=== PATIENT | female | born 1990 | race Caucasian/White ===

== ENCOUNTER 2023-01-17 11:10 | Emergency (ER) | payer BC, SELFPAY ==
[2023-01-17] VITALS (12 sets, daily range): BP systolic 97–122; BP diastolic 65–85; PULSE 66–78; RESP 20; TEMP 37.1; O2SAT 98–100; BMI 21.4
--- NOTE | 2023-01-17 14:01 | ED.GENADULT ---
HPI - General Adult General Chief complaint: Arrhythmia/Palpitations Stated complaint: heart palpitations Time Seen by Provider: 01/17/23 13:35 History of Present Illness HPI narrative: This is a pleasant 32-year-old female with a past medical history including frequent PVCs, environmental allergies, GERD, anxiety, who presents to the ER today with her with concern for palpitations, generalized weakness, shakiness, mild shortness of breath. She does have a history of PVCs that are previously diagnosed with EKG and cardiac monitors which and at home Zio patch. She tends to correlate them and feeling more when she is dehydrated. She tends to have them a couple of times per week. She began to feel frequent PVCs yesterday evening. She tried to drink fluids but they did go away. They were more persistent overnight and still persistent this morning. She is having frequent PVCs. She can feel them in isolated beats. Also this morning she is feeling little bit shaky. She is mildly weak. 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 This made her more fatigued than such an encounter with a dog would normally do. She is not having any chest pain. No fever. No cough. No abdominal pain. No urinary symptoms. She does not think she is . No swelling in her legs. Related Data Home Medications Medication Instructions Recorded Confirmed No Known Home Medications 01/17/23 01/17/23 Allergies Allergy/AdvReac Type Severity Reaction Status Date / Time acetaminophen Allergy Severe throat Verified 09/01/22 14:29 swelling aspirin Allergy Severe throat Verified 09/01/22 14:29 swelling caffeine Allergy Severe throat Verified 09/01/22 14:29 swelling ibuprofen Allergy Severe throat Verified 09/01/22 14:29 swelling PFSH PFSH Social History Smoking Status: Never smoker Non-prescribed substance use: denies use Exam Narrative: Exam Narrative: Constitutional: Appears well-developed and well-nourished. Alert. Conversant. Non toxic. HENT: Head: Atraumatic. Nose: Nose normal. Mouth/Throat: Oral mucosa is clear and moist. no trismus. Pharynx normal. Tonsils symmetric. No tonsillar enlargement, erythema, or exudate. Eyes: Conjunctivae normal. EOM normal. Pupils equal, round, and reactive to light. No scleral icterus. Neck: Normal range of motion. Neck supple. No tracheal deviation present. No thyromegaly. Cardiovascular: Normal rate, regular rhythm. She has a PVC about once every minute or 2 on the monitor while we are talking. With each PVC she is specifically symptomatic at that moment. They correlate to her symptomatic palpitations. No gallop. No friction rub. No murmur heard. Symmetric radial and PT Artery pulses . No JVD Pulmonary/Chest: Effort normal. No stridor. No respiratory distress. No wheezes. No rales. No rhonchi . No tenderness. Abdominal: Soft. Bowel sounds normal. No distension. No mass. No tenderness. No rebound. No guarding. Musculoskeletal: RUE: Normal range of motion. No tenderness. No deformity LUE: Normal range of motion. No tenderness. No deformity RLE: Normal range of motion. No edema. No tenderness. No deformity LLE: Normal range of motion. No edema. No tenderness. No deformity Lymph: No cervical adenopathy. Neurological: Alert and oriented to person, place, and time. Normal strength. CN II-VII intact. No sensory deficit. GCS eye subscore is 4. GCS verbal subscore is 5. GCS motor subscore is 6. Normal coordination Skin: Skin is warm and dry. No rash noted. No pallor. Normal capillary refill. Psychiatric: Normal mood. Very polite. Mildly anxious. Const: Vital Signs, click to edit/add: Vital Signs - 24 hr 01/17/23 11:22 01/17/23 15:04 01/17/23 15:08 Temperature 98.8 F Pulse Rate 78 73 Pulse Rate [Pulse Oximeter] 74 Respiratory Rate 20 Blood Pressure 110/75 Blood Pressure [Ri ght Upper Arm] 122/85 Pulse Oximetry 100 100 100 Oxygen Delivery Me thod Room Air Course Vital Signs Vital signs: Initial Vital Signs Temperature 98.8 F 01/17/23 11:22 Temperature Source Temporal Artery Scan 01/17/23 11:22 Pulse Rate 74 01/17/23 11:22 Pulse Rhythm Regular 01/17/23 11:22 Respiratory Rate 20 01/17/23 11:22 Blood Pressure 122/85 01/17/23 11:22 Blood Pressure Mean 97 01/17/23 11:22 Blood Pressure Position Sitting 01/17/23 11:22 Pulse Oximetry 100 01/17/23 11:22 Oxygen Delivery Method Room Air 01/17/23 11:22 Vital Signs Temperature 98.8 F 01/17/23 11:22 Pulse Rate 74 01/17/23 11:22 Respiratory Rate 20 01/17/23 11:22 Blood Pressure 122/85 01/17/23 11:22 Pulse Oximetry 100 01/17/23 11:22 Oxygen Delivery Method Room Air 01/17/23 11:22 Temperature 98.8 F 01/17/23 11:22 Pulse Rate 73 01/17/23 15:08 Respiratory Rate 20 01/17/23 11:22 Blood Pressure 110/75 01/17/23 15:08 Pulse Oximetry 100 01/17/23 15:08 Oxygen Delivery Method Room Air 01/17/23 11:22 Medical Decision Making MDM Narrative Medical decision making narrative: This patient presents for evaluation of palpitations. A broad differential diagnosis was considered including SVT, Atrial fibrillation, ventricular arrhythmia. Initial ECG shows normal sinus rhythm and no dysrhythmogenic abnormality such as WPW, prolonged QT, Brugada syndrome, and no ischemia. panel monitor while the patient here in the ER showed no dysrhythmia. She was having frequent PVCs that corresponded to her palpitation symptoms. We undertook evaluation for cause of PVCs, including workup for thyroid disease, acute electrolyte abnormality, drugs/medications, caffeine intake or other stimulants, medication side effect, anemia, heart disease, PE, among others. The workup and exam here in ED shows not specific cause of the patient's palpitations, and no risks factors to warrant admission. Clinical judgement suggests that supportive outpatient management is indicated. Will arrange an outpatient Holter monitor and recommend follow up with []. Lab Data Labs: Lab Results 01/17/23 Range/Units 14:55 WBC 5.19 (4.50-11.00) K/uL RBC 4.52 (4.00-5.20) m/uL Hgb 13.1 (12.0-16.0) gm/dL Hct 39.7 (33.0-51.0) % MCV 88 (80-100) fL MCH 29 (26-34) pg MCHC 33 (32-36) gm/dL RDW Coeff of Susan 13.0 (11.5-15.5) % Plt Count 166 (140-440) K/uL Neut % (Auto) 57.4 (42.0-72.0) % Lymph % (Auto) 29.7 (20-44) % [place] % (Auto) 9.2 (0.0-11.0) % Eos % (Auto) 3.3 (0.0-7.0) % Baso % (Auto) 0.4 (0.0-3.0) % Neut # (Auto) 2.98 (1.7-7.0) K/uL Lymph # (Auto) 1.54 (0.90-2.90) K/uL [place] # (Auto) 0.50 (0.00-0.90) K/UL Eos # (Auto) 0.17 (0.00-0.50) K/uL Baso # (Auto) 0.02 (0.00-0.30) K/uL Abs Immat Gran (auto) 0.00 (0.00-0.30) K/uL Imm/Tot Granulo (auto) 0.0 % D-Dimer Quant (PE/DVT) < 0.27 (0.00-0.50) ug/ml Sodium 139 (135-149) mmol/L Potassium 3.9 (3.6-5.1) mmol/L Chloride 108 (96-114) mmol/L Carbon Dioxide 23 (20-32) mmol/L Anion Gap 8 (7-15) mEq/L BUN 11 (5-24) mg/dL Creatinine 0.5 (0.5-1.5) mg/dL Estimated Creat Clear 169.27 Estimated GFR 129 ml/min Glucose 78 (60-115) mg/dL Calcium 9.2 (8.4-10.6) mg/dL Troponin I < 0.01 L (0.01-0.04) ng/mL HCG, Qual Negative (Negative) ECG Data Attestation: I personally reviewed and interpreted this ECG as follows: Interpretation: Normal sinus rhythm rate 78. Computer interpretation indicates sinus rhythm was sinus arrhythmia and short VT. I believe this inaccurate. She does have visible P waves in lead V1 and VT interval is approximately 120-140 VT 120-140 QRS axis normal axis ST segment/T wave: Nonspecific flattening. No ST segment elevation or depression. QTc: 426. While on the color television console monitor she did maintain sinus rhythm with frequent PVCs. These PVCs were symptomatic and directly correlated with her sensed palpitations. Discharge Plan Discharge Clinical Impression: Frequent PVCs Patient Disposition: Home, Self-Care Condition: Stable Instructions: Premature Ventricular Contractions (ED) Additional Instructions: Please rest, stay hydrated. We expect that your PVC should get better over the next day or 2. If you have worsening symptoms, please come back to the ER right away. If her PVCs are not getting better within 2-3 days, you can come back to the ER or recheck with your doctor for recheck. Prescriptions: No Action No Known Home Medications Follow Up/Referrals: Provider,Not a Local [Primary Care Provider] - Stand Alone Forms: [facility] Info Instructions
[2023-01-17 15:03] LABS: Basophils Absolute Auto 0.02 K/uL (0.00-0.30); Basophils Percent Auto 0.4 % (0.0-3.0); Eosinophils Absolute Auto 0.17 K/uL (0.00-0.50); Eosinophils Percent Auto 3.3 % (0.0-7.0); Hematocrit 39.7 % (33.0-51.0); Hemoglobin* 13.1 gm/dL (12.0-16.0); Lymphocytes Absolute Auto 1.54 K/uL (0.90-2.90); Lymphocytes Percent Auto 29.7 % (20-44); Mean Corpuscular HGB Conc 33 gm/dL (32-36); Mean Corpuscular Hemoglobin 29 pg (26-34); Mean Corpuscular Volume 88 fL (80-100); Monocytes Percent Auto 9.2 % (0.0-11.0); Neutrophils Absolute Auto 2.98 K/uL (1.7-7.0); Neutrophils Percent Auto 57.4 % (42.0-72.0); Platelet Count* 166 K/uL (140-440); Red Blood Count 4.52 m/uL (4.00-5.20); White Blood Count* 5.19 K/uL (4.50-11.00)
[2023-01-17 15:07] LABS: Slide Review Reflex No
[2023-01-17 15:13] LABS: Chloride* 108 mmol/L (96-114); Potassium* 3.9 mmol/L (3.6-5.1); Sodium* 139 mmol/L (135-149)
[2023-01-17 15:16] LABS: Anion Gap 8 mEq/L (7-15); Blood Urea Nitrogen* 11 mg/dL (5-24); Carbon Dioxide* 23 mmol/L (20-32); Creatinine* 0.5 mg/dL (0.5-1.5); Est. Creatinine Clearance* 169.27; Estimated Glomerular Filt Rate 129 ml/min
[2023-01-17 15:17] LABS: Calcium* 9.2 mg/dL (8.4-10.6); Glucose* 78 mg/dL (60-115)
[2023-01-17 15:46] LABS: HCG Qualitative Serum* Negative (Negative)
[2023-01-17 15:48] LABS: D Dimer Quantitative* < 0.27 ug/ml (0.00-0.50)
[2023-01-17 16:07] LABS: Troponin I* < 0.01 ng/mL (0.01-0.04)
[2023-01-17] MEDS: 0.9 % SODIUM CHLORIDE 1000 ml 1,000 ML 350 ML IV (16:42)
== END 2023-01-17 16:41 | disposition home or self-care (01) ==
PROVIDERS: Emergency Provider Emergency Medicine
DX: I49.3 Ventricular premature depolarization (principal)
CPT/HCPCS: 36415; 80048; 84484; 84703; 85025; 85379; 94761; 99283; 99284; J7030